=== PATIENT | male | born 1985 | race Caucasian/White ===

== ENCOUNTER 2016-10-07 14:11 | Emergency (ER) | payer OTHER ==
[~2016-10-07 14:11] MED LIST: AMOXICILLIN875 MG PO; DARVOCET-N 1001 TA1 DOB; IBUPROFEN PO; ILOTYCIN1 GM OD; KEFLEX PO; NAPROSYN500 MG PO; NO MEDICATIONS; PEPCID AC20 M2 PO; PERCOCET5/325 PO; PHENERGAN25 MG PO; PREDNISONE PO; TYLENOL #3 PO; VICODIN 5/500 T1 TAB PO
[2016-10-08] MEDS ORDERED: AMOXICILLIN875 MG PO (21:17)
[2016-10-08] MEDS ORDERED: VOLTAREN75 MG PO (21:17)
[2016-10-08] MEDS ORDERED: DENTAL BALLS (21:17)
== END 2016-10-07 14:55 | disposition home or self-care (01) ==
LOC: SED 14:11
DX: K04.7 Periapical abscess without sinus (principal); F17.200 Nicotine dependence, unspecified, uncomplicated
CPT/HCPCS: 99282

== ENCOUNTER 2016-10-08 21:41 | Emergency (ER) | payer OTHER ==
[~2016-10-08 21:41] MED LIST changes: +DENTAL BALLS; +VOLTAREN75 MG PO
== END 2016-10-08 22:48 | disposition home or self-care (01) ==
LOC: SED 21:41
DX: K08.89 Other specified disorders of teeth and supporting structures (principal); G89.29 Other chronic pain; F17.210 Nicotine dependence, cigarettes, uncomplicated
CPT/HCPCS: 96372; 99283; J1885